=== PATIENT | female | born 1970 | race Caucasian/White ===

== ENCOUNTER 2021-10-15 11:59 | Observation (INO) | payer OTHER, SELFPAY ==
[2021-10-15] VITALS (30 sets, daily range): BP systolic 102–128; BP diastolic 51–80; PULSE 70–87; RESP 14–18; TEMP 36.3–37.1; O2SAT 94–100; BMI 21.2
--- NOTE | ~2021-10-15 | XR_ITS ---
XR chest 1V portable 10/15/2021 15:04 Indication: Weakness and dyspnea Procedure: AP portable chest Comparison: No prior studies for comparison. Findings: There are coarse interstitial infiltrates of both lungs. No pleural effusion or pneumothora x. No acute osseous abnormality. Heart size is normal. No acute osseous abnormality. Impression: 1: Coarse bilateral interstitial infiltrates which may represent mild edema or pneumonia. Reviewed, dictated and finalized at location B. Impression: 1: Coarse bilateral interstitial infiltrates which may represent mild edema or pneumonia.
--- NOTE | ~2021-10-15 | US_ITS ---
US abdomen limited INDICATION: Jaundice. Abdomen pain. PROCEDURE: Realtime right upper abdominal ultrasound. COMPARISON: No prior studies for comparison. FINDINGS: The pancreas is normal without focal mass or pancreatic ductal dilation. There is hepatome vadim with diffuse fatty infiltration. There is normal directional flow in the portal vein. There is gallbladder wall thickening. No stones identified. No pericholecystic fluid. There is a smal l amount of ascites. Spleen is enlarged measuring 13.8 cm. Common bile duct measures 0.35 mm. No so nographic Palafox's sign. IMPRESSION: 1: Hepatosplenomegaly with fatty infiltration of the liver. 2: Small amount of ascites. 3: Gallbladder wall thickening. This could indicate interstitial edema, chronic liver disease or family resource management professor yasmany cholecystitis. Reviewed, dictated and finalized at location B. IMPRESSION: 1: Hepatosplenomegaly with fatty infiltration of the liver. 2: Small amount of ascites. 3: Gallbladder wall thickening. This could indicate interstitial edema, chronic liver disease or chronic cholecystitis.
--- NOTE | ~2021-10-15 | US_ITS ---
EXAMINATION:US venous doppler LE BI INDICATION:Leg edema TECHNIQUE: Multiple grayscale, color flow and Doppler images of the right and left lower extremity de ep venous systems were obtained and reviewed. COMPARISON:No prior studies for FINDINGS: The common femoral, superficial femoral and popliteal veins demonstrate normal respiratory variation, augmentation and compressibility. Color flow is also seen within the posterior tibial, pe roneal, greater saphenous and profunda veins. There is a Gaona's cyst in the left popliteal fossa perry suring 3.9 x 2 x 0.9 cm. IMPRESSION: 1: No lower extremity deep venous thrombosis. Reviewed, dictated and finalized at location A.
[2021-10-15 13:18] LABS: Basophils Percent Auto 0.6 % (0.2-1.2); Eosinophils Absolute Auto 0.1 K/mm3 (0-0.3); Eosinophils Percent Auto 1.1 % (0-4.4); Hematocrit 42.2 % (37.0-47.0); Hemoglobin 14.6 g/dL (12.0-15.0); Immature Granulocyte Absolute 0.04 K/mm3 (0.00-0.031); Immature Granulocyte Percent A 0.6 % (0-0.5); Lymphocytes Absolute Auto 1.06 K/mm3 (0.9-3.2); Mean Corpuscular HGB Conc 34.6 g/dl (32-36); Mean Corpuscular Hemoglobin 36.5 pg (26-34); Mean Corpuscular Volume 105.5 fl (80-100); Mean Platelet Volume 10.1 fl (7.4-10.4); Monocytes Absolute Auto 0.5 K/mm3 (0.1-0.6); Monocytes Percent Auto 7.4 % (2.6-8.5); Neutrophils Absolute Auto 5.3 K/mm3 (1.3-6.7); Neutrophils Percent Auto 75.3 % (45.5-73.1); Platelet Count Result 170 k/mm3 (150-375); Red Cell Distribution Width 15.9 % (11.5-14.5); White Blood Count 7.1 K/mm3 (4.5-10.0)
[2021-10-15 13:22] LABS: Appearance Urine Clear (Clear); Bilirubin Urine 1+ (Negative); Blood Urine Negative (Negative); Color Urine Yellow (Yellow); Glucose Urine UA Negative (Negative); Ketones Urine Negative (Negative); Leukocyte Esterase Ur Negative LEU/UL (Negative); Nitrate Urine Negative (Negative); Protein Urine Negative (Negative)
[2021-10-15 13:24] LABS: Bacteria Urine Trace /hpf; Mucus Urine Rare /lpf; RBC Urine 0-2 /hpf (0-2); Squamous Epithelial Cell Urine Moderate /hpf (Few); WBC Urine 0-3 /hpf
--- NOTE | 2021-10-15 13:28 | ED.GENADULT ---
HPI - General Adult General Chief complaint: Abdominal Pain Stated complaint: constipated for a few weeks, abd distention Time Seen by Provider: 10/15/21 12:51 Source: patient, RN notes reviewed and old records reviewed Mode of arrival: ambulatory Limitations: no limitations History of Present Illness HPI narrative: This is a 51 year old female who presents for evaluation of leg swelling , abdominal distension and pain. Patient has noticed abdominal distension and bilateral ankle swelling for 2 weeks. She states initially her swelling improved but over the past week her leg swelling has worsened. Her right ankle swelling is worse. She denies leg pain, chest pain, or shortness of breath. She also reports being constipated for weeks. She has been taking laxatives without relief. She reports having intermittent RUQ and epigastric pain. She reports having one episode of emesis last week but otherwise denies nausea. She denies history of liver disease. 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 When she is at work she drinks multiple shots. When she is at home she drinks hard seltzers. Related Data Allergies Allergy/AdvReac Type Severity Reaction Status Date / Time No Known Allergies Allergy Verified 10/15/21 12:00 Review of Systems Review of Systems: All systems reviewed & are unremarkable except as noted in HPI and below Constitutional: Constitutional: Denies chills and Denies fatigue Eyes: Eyes: Denies change in vision Cardiovascular: Cardiovascular: Denies chest pain and Denies rapid heart rate Respiratory: Respiratory: Denies chest congestion, Denies cough and Denies dyspnea Gastrointestinal: Gastrointestinal: Reports abdominal pain, Reports bloating, Reports constipation, Reports nausea and Reports vomiting [facility] Past Medical History Medical History (Updated 10/15/21 @ 18:48 by Mariel Devries MD) Patient denies medical problems Surgical History Surgical History (Updated 10/15/21 @ 13:38 by Mariel Devries MD) No pertinent past surgical history Social History Social History (Updated 10/15/21 @ 13:38 by Mariel Devries MD) Alcohol intake: current Exam Const: General: no acute distress, alert and ill appearing Orientation/consciousness: patient oriented x3 Limitations: no limitations HENMT: Face and sinus: normal facial exam Mouth: Yes Normal oral and palatal mucosa present Eyes: Conjunctivae: conjunctival abnormality bilateral conjunctival icterus Pupils: Equal, round and reactive pupils present EOM: EOMs intact bilaterally Resp: Effort & Inspection: normal respiratory effort Auscultation: clear to auscultation bilaterally Cardio: Rate: regular rate Rhythm: regular rhythm Heart sounds: no murmurs GI: Inspection: distended GI Palp: Yes Soft to palpation, Yes Tenderness to palpation present (GI) (RUQ), No Guarding due to palpation present (GI), No Rigid due to palpation and No Hernia present Auscultation: normal bowel sounds Skin: General skin exam: jaundice Neuro: General: patient oriented x3, moves all extremities and CN's II-XI intact bilaterally Extrem: General: edema bilateral (leg) Psych: Mental Status: mental status grossly normal Course Reevaluation(s) Reevaluation #1: Patient presents with abdominal pain. This seems to be due to alcoholic pancreatits with hepatosplenomegaly. She does not have follow up . She is agreeable for admission. I also discussed concern that she may develop alcohol withdrawal and she needs to stop drinking. Isabella maki accepts patient. Date: 10/15/21 Time: 18:00 Vital Signs Vital signs: Vital Signs Temperature 97.8 F 10/15/21 12:19 Pulse Rate 72 10/15/21 12:19 Respiratory Rate 14 10/15/21 12:19 Blood Pressure 128/74 10/15/21 12:19 Pulse Oximetry 100 10/15/21 12:19 Oxygen Delivery Room Air 10/15/21 12:19 Temperature 98.2 F 10/15/21 18:15 Pulse Rate 71 10/15/21 18:15
[2021-10-15 13:37] LABS: Add Urine Microscopic? YES
[2021-10-15 13:56] LABS: Alanine Aminotransferase 46 U/L (6-35); Albumin Level 4.1 g/dL (3.5-5.1); Alkaline Phosphatase 326 U/L (38-126); Anion Gap 9 mmol/L (8-16); Aspartate Amino Transferase 145 U/L (14-36); Bilirubin,Total 8.4 mg/dL (0.2-1.3); Blood Urea Nitrogen 4 mg/dL (7-17); Carbon Dioxide 26 mmol/L (22-30); Chloride 102 mmol/L (98-107); Estimated CRCL calculation 99 ml/min; Estimated Glomerular Filt Rate > 60; Glucose 109 mg/dL (65-110); Lipase 313 U/L (23-300); Sodium 137 mmol/L (137-145)
[2021-10-15 14:07] LABS: Ammonia < 9 umol/L (9-30)
[2021-10-15 15:20] LABS: Magnesium 1.8 mg/dL (1.6-2.3)
[2021-10-15 15:28] LABS: NT Pro B Type Natriuretic Pept 655 pg/mL (5-100)
[2021-10-15 15:56] LABS: INR 1.5; Prothrombin Time 17.5 Seconds (11.1-14.7)
[2021-10-15 15:57] LABS: Partial Thromboplastin Time 40.3 SECONDS (22.3-36.8)
[2021-10-15 16:21] LABS: SARS-CoV-2 RNA PCR Negative
[2021-10-15 16:38] LABS: Hepatitis B Surface Antigen Negative (Negative)
[2021-10-15 16:44] LABS: HAV RESULT Negative (Negative); Hepatitis B Core IgM Result Negative (Negative)
[2021-10-15] MEDS: POTASSIUM CHLORIDE 20 MEQ TABLET 40 MEQ PO (16:54)
[2021-10-15 16:56] LABS: Hepatitis C Virus Antibody Negative (Negative)
[2021-10-15] MEDS: FUROSEMIDE INJ 40 MG/4 ML VIAL IV PUSH (17:39)
--- NOTE | 2021-10-15 17:39 | PC.NURSE ---
lasix manual documented by hospitalist in room with pt on computer. Pt verified by name, , and med verified with EMAR
--- NOTE | 2021-10-15 18:00 | PM.IMHP ---
H&P: HPI History of Present Illness Date/Time: 10/15/21 18:00 Chief Complaint: Multiple complaints. Narrative: This is a pleasant 51-year-old smoker with history of alcohol abuse who presented to the emergency department with multiple complaints including lower extremity edema, abdominal distension concerns for constipation, and yellowing of the eyes. Her abdomen has been distended for the past couple of weeks which she has been attributing to constipation. She has tried Ex-Lax and MiraLax without much benefit, reporting passing only small amounts of otherwise normal stool. She has also developed swelling in her lower legs and friends and family members have remarked that the whites of her eyes look a bit yellow. She was worried that perhaps her symptoms may be related to her alcohol use, and she has not had anything to drink for 3 days. 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 Right upper quadrant ultrasound was ordered for evaluation of jaundice and elevated LFTs and that showed hepatosplenomegaly with fatty infiltration of the liver, small amount of ascites, and gallbladder wall thickening. She has no known history of liver disease and she gives no history to suggest ongoing problems with gallbladder disease. Her appetite has been fine and she denies nausea and vomiting (aside from vomiting after taking MiraLax a couple of weeks ago). She has noticed that her urine is darker than normal but she has not had any UTI symptoms. She has occasional chills but denies fever and sweats. She has not had any signs or symptoms of alcohol withdrawal and specifically denies confusion, hallucinations, anxiety, sweats, and tremors. Review of Systems Review of Systems: Twelve systems were reviewed. No hematemesis, melena, or hematochezia. No cold or flu symptoms. No chest pain or shortness of breath. Denies easy bruising and bleeding. Except as documented, all other systems were reviewed and are negative. [facility] Past Medical History Medical History (Updated 10/15/21 @ 21:26 by Isabella Ackerman PA-C) Alcohol abuse Nicotine use Surgical History Surgical History (Updated 10/15/21 @ 21:15 by Isabella Ackerman PA-C) No history of previous surgery Family History Family History Father Hypertension Aneurysm Mother Hypertension Diabetes mellitus Breast cancer Social History Social History Social History: The patient lives in [place] with her fiance, other 2 children, and pets. 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 She smokes perhaps a half a pack a cigarettes a day when she is working; she does not smoke at home. When working, she drinks perhaps up to a pint of fireball over multiple shots throughout the shift. On the nights that she does not work, she typically consumes for White [employer]aws. No illicit substance use. She designates her fiance, Gagan Guthrie, as her surrogate decision maker and she wishes to be a full code. Meds Home Medications and Allergies Home Medications Medication Instructions Recorded Confirmed Type No Home Medications 10/15/21 10/15/21 History Allergies Allergy/AdvReac Type Severity Reaction Status Date / Time No Known Allergies Allergy Verified 10/15/21 21:17 Vital Signs Vital Signs - 24 hr 10/15/21 12:19 10/15/21 12:50 10/15/21 12:51 Temperature 97.8 F Pulse Rate 72 Respiratory Rate 14 Blood Pressure 128/74 124/70 Pulse Oximetry 100 99 100 Oxygen Delivery Room Air 10/15/21 14:30 10/15/21 12:52 10/15/21 15:13 Temperature 97.3 F L Pulse Rate 70 Respiratory Rate 16 Blood Pressure 122/70 Pulse Oximetry 99 97 98 Oxygen Delivery 10/15/21 15:14 10/15/21 15:15
--- NOTE | 2021-10-15 20:40 | ADMGEN ---
This patient, Mitra Martínez, was admitted to [facility] Room 313-01. Patient/family oriented to hospital policies and general routines including ID bracelet, bed and alarms, visiting hours, pain management, procedures, bathroom and other care routines, personal items, smoking policy, room service/diet, and visiting hours. Information on how to activate the Rapid Response Team has been discussed. Patient/Family are encouraged to report perceived risks to care and to ask questions if they do not understand what they are told or what they should do.
[2021-10-15] MEDS: FOLIC ACID 1 MG/0.2 ML INJ IV PUSH (22:03)
[2021-10-15] MEDS: THIAMINE HCL 200 MG/2 ML VIAL 100 MG IV PUSH (22:03)
[2021-10-15 22:59] LABS: Magnesium 1.6 mg/dL (1.6-2.3); Potassium 3.4 mmol/L (3.4-5.0)
[2021-10-16] VITALS (9 sets, daily range): BP systolic 100–111; BP diastolic 52–60; PULSE 68–85; RESP 16–20; TEMP 36.8–37; O2SAT 95–98
[2021-10-16 00:07] LABS: Folic Acid 10.6 ng/mL (2.76->20); Vitamin B12 > 1000.0 pg/mL (239-931)
--- NOTE | 2021-10-16 06:00 | ECHO_ITS ---
Patient Info Name: Mitra Martínez Age: 51 years : 1970 Gender: Female Ht: 66 in Wt: 131 lbs BSA: 1.66 m2 HR: 74 bpm BP: 100 / 52 mmHg Technical Quality: Good Exam Date: 10/16/2021 7:40 AM [facility] Patient Status: Outpatient Admit Date: 10/15/2021 Staff Ordering Physician: Mariel Devries MD Alcoholism Worker: Jo Hess RDCS Attending Provider: Leida Troy PA-C Referring Physician: Jaycob MARINELLI; Exam Type: CA echo doppler color flow Study Info Indications I50.20 - Unspecified systolic (congestive) heart failure Complete two-dimensional, color flow and Doppler transthoracic echocardiogram is performed. Summary 1. Complete two-dimensional, color flow and Doppler transthoracic echocardiogram is performed. 2. Left ventricular chamber dimension is mildly enlarged. 3. Left ventricular systolic function is normal, estimated at 60-65%. 4. The left ventricular diastolic function is normal. 5. E/e' 9 is minimally elevated. 6. Left atrial chamber dimension is moderately enlarged. 7. There is mild mitral valve regurgitation. 8. There is trace tricuspid valve regurgitation. 9. No pulmonary hypertension, estimated pulmonary arterial systolic pressure is 21 mmHg. 10. There is trace pulmonic regurgitation. 11. There is trivial pericardial effusion. Left Ventricle E/e' 9 is minimally elevated. Left ventricular chamber dimension is mildly enlarged. Left ventricular systolic function is normal, estimated at 60-65%. The left ventricular diastolic function is normal. Right Ventricle Right ventricular systolic function is normal and with normal TAPSE 3.2 cm. Right ventricular chamber dimension is normal. Left Atria Left atrial chamber dimension is moderately enlarged. Right Atria Right atrial chamber dimension is normal. Aortic Valve The aortic valve is trileaflet. There is no aortic valve stenosis. There is no aortic valve regurgitation. Pulmonic Valve There is trace pulmonic regurgitation. Mitral Valve There is no mitral valve stenosis. There is mild mitral valve regurgitation. Tricuspid Valve There is trace tricuspid valve regurgitation. No pulmonary hypertension, estimated pulmonary arterial systolic pressure is 21 mmHg. Pericardium/Pleural There is trivial pericardial effusion. Inferior Vena Cava Normal inferior vena cava with >50% collapse upon inspiration consistent with normal right atrial pressure, 5 mmHg. Aorta The aortic root size at the sinus of Valsalva is normal. Left Ventricular Outflow Tract Name Value Normal LVOT 2D LVOT Diameter 2.0 cm LVOT Doppler LVOT Peak Gradient 8 mmHg LVOT Mean Gradient 4 mmHg LVOT VTI 31 cm LVOT VTI/AV VTI Ratio 0.9 LVOT Stroke Volume 98 ml LVOT CO 16.0 l/min LVOT CI 9.6 l/min/m2 Pulmonic Valve Name
[2021-10-16 06:59] LABS: Basophils Percent Auto 0.6 % (0.2-1.2); Eosinophils Absolute Auto 0.1 K/mm3 (0-0.3); Eosinophils Percent Auto 2.5 % (0-4.4); Hematocrit 33.4 % (37.0-47.0); Hemoglobin 11.7 g/dL (12.0-15.0); Immature Granulocyte Absolute 0.01 K/mm3 (0.00-0.031); Immature Granulocyte Percent A 0.2 % (0-0.5); Lymphocytes Absolute Auto 1.08 K/mm3 (0.9-3.2); Mean Corpuscular Volume 102.8 fl (80-100); Mean Platelet Volume 10.5 fl (7.4-10.4); Monocytes Absolute Auto 0.6 K/mm3 (0.1-0.6); Monocytes Percent Auto 11.5 % (2.6-8.5); Neutrophils Absolute Auto 3.3 K/mm3 (1.3-6.7); Neutrophils Percent Auto 64.2 % (45.5-73.1); Platelet Count Result 141 k/mm3 (150-375); Red Blood Count 3.25 M/mm3 (4.2-5.4); Red Cell Distribution Width 16.3 % (11.5-14.5); White Blood Count 5.2 K/mm3 (4.5-10.0)
[2021-10-16 07:11] LABS: Alanine Aminotransferase 31 U/L (6-35); Albumin Level 2.6 g/dL (3.5-5.1); Alkaline Phosphatase 201 U/L (38-126); Anion Gap 2 mmol/L (8-16); Aspartate Amino Transferase 92 U/L (14-36); Bilirubin,Total 5.9 mg/dL (0.2-1.3); Blood Urea Nitrogen 4 mg/dL (7-17); Carbon Dioxide 29 mmol/L (22-30); Chloride 103 mmol/L (98-107); Estimated CRCL calculation 104 ml/min; Estimated Glomerular Filt Rate > 60; Glucose 92 mg/dL (65-110); Magnesium 1.7 mg/dL (1.6-2.3); Phosphorus 3.1 mg/dL (2.5-4.5); Potassium 3.2 mmol/L (3.4-5.0); Sodium 134 mmol/L (137-145)
[2021-10-16 07:26] LABS: INR 1.7; Prothrombin Time 19.2 Seconds (11.1-14.7)
[2021-10-16 07:27] LABS: Partial Thromboplastin Time 42.5 SECONDS (22.3-36.8)
--- NOTE | 2021-10-16 08:34 | PM.IMPN ---
Progress Note: A&P Assessment and Plan (1) Alcoholic hepatitis: Code(s): K70.10 - Alcoholic hepatitis without ascites Status: Acute Assessment and Plan: Long discussion with the patient and she seems motivated to stop drinking. She has not had alcohol in 3 days in seems to be doing quite well with no signs or symptoms to suggest withdrawal. Initiate CIWA protocol however. She has been started on folic acid and thiamine supplementation. Hepatitis panel negative. Coags show prolonged PT/APTT. Due to her edema, small amount of ascites, and bilateral infiltrates on chest x-ray will avoid over-hydration. Patient with mild lipase elevation at 313, BNP 655, Alk Phos 201. Abdominal Ultrasound showed: 1: Hepatosplenomegaly with fatty infiltration of the liver. 2:? Small amount of ascites. 3: Gallbladder wall thickening. This could indicate interstitial edema, chronic liver disease or chronic cholecystitis. Venous duplex showed no lower extremity DVT. She received 1 dose IV lasix in the ER, and GI started her on spironolactone. Aside from her isolated right lower extremity edema, she does not appear volume overloaded. Echo pending. GI has been consulted did discuss alcohol cessation, course of her treatment and prognosis. They opined her ascites and edema is likely due to some portal hypertension. (2) Hypokalemia: Code(s): E87.6 - Hypokalemia Status: Acute Assessment and Plan: She received 40 mEq KCL in the emergency department. Repeat electrolytes in a.m. Recheck K in the AM. (3) Alcohol abuse: Code(s): F10.10 - Alcohol abuse, uncomplicated Status: Acute Assessment and Plan: The patient understands that she needs to stop drinking immediately and she seems motivated. Plan is as detailed above. CIWA protocol in place and patient started of folic acid and thiamine. Patient is not confused at this time. CIWA score is 0 at this time. Will continue to monitor. Continue with thiamine and folic acid supplementation. (4) Coagulopathy: Code(s): D68.9 - Coagulation defect, unspecified Status: Acute Assessment and Plan: Patient's INR is 1.9. Patient denies episodes of bleeding or easy bruising. She is encouraged to stop drinking. Recheck INR in the AM (5) Nicotine use: Code(s): Z72.0 - Tobacco use Status: Acute Assessment and Plan: She smokes mainly when she is at work and declines the need for nicotine patch. Subjective Date/time seen: 10/16/21 08:34 Interval history: 51-year-old smoker with history of alcohol abuse who presented to the emergency department with multiple complaints including lower extremity edema, abdominal distension concerns for constipation, and yellowing of the eyes.?She said she is feeling well today, but continues to have lower extremity swelling. She denies abdominal pain except with Pushing on my liver . She acknowledged she received AA resources, and is motivated to stop drinking. Review of Systems Review of Systems: All systems reviewed & are unremarkable except as noted in HPI and below Exam Narrative: GENERAL APPEARANCE: Alert and oriented x 3, in no apparent distress. HEENT: PERRL, EOMI. Scleral icterus present. Moist mucous membranes. NECK: Supple. No JVD or obvious carotid bruits. RESPIRATORY: Respirations are nonlabored. Breath sounds are equal and clear bilaterally. No wheezes, Rhonchi, or rales. CARDIOVASCULAR: Regular rate and rhythm with normal S1-S2. No murmurs, gallops, or rubs. GASTROINTESTINAL: Soft, flat, and benign. No mass, tenderness, guarding, or rebound. Bowel sounds are present. SKIN: She is jaundiced. Warm, dry, well perfused. Good turgor. No lesions, nodules, or rashes noted. EXTREMITIES: No cyanosis, clubbing. Right sided lower extremity pitting edema. Radial and pedal pulses intact. NEUROLOGICAL: Alert. Cranial nerves 2-12 are grossly intact.
[2021-10-16] MEDS: POTASSIUM CHLORIDE 20 MEQ PACKET (FOR LIQUID) 40 MEQ PO (09:59)
[2021-10-16] MEDS: FOLIC ACID 1 MG TABLET PO (09:59)
[2021-10-16] MEDS: THIAMINE HCL 100 MG TABLET PO (09:59)
--- NOTE | 2021-10-16 09:59 | WPDGICN ---
Assessment and Plan Assessment and plan (1) Acute alcoholic hepatitis: Code(s): K70.10 - Alcoholic hepatitis without ascites Status: Acute Assessment and Plan: explain to her that she will likely get worse before she has better. She may go through a phase of alcohol withdrawal. Likewise her liver enzymes may increase before they start to decrease which is common with alcoholic hepatitis. I explained to her that her large liver suggests that she is at risk for cirrhosis. 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 (3) Hypokalemia: Code(s): E87.6 - Hypokalemia Status: Acute Assessment and Plan: She has received potassium supplement. I will start her on spironolactone which will help her potassium and also will help with her ascites and edema which is likely due to some portal hypertension (4) Coagulopathy: Code(s): D68.9 - Coagulation defect, unspecified Status: Acute Assessment and Plan: INR 1.9 is worrisome. Hopefully this will improve as she stops drinking. She denies any recent bleeding or frequent bloody noses etcetera Plan observe for possible alcohol withdrawal syndrome. Meat pain thiamine and folic acid supplements. GI Consult Note Consult date/time: 10/16/21 09:59 HPI: Mitra Martínez is a 51 year old female who was admitted with increasing abdominal discomfort, in the her abdomen was becoming distended over the last couple weeks. Also she has noticed some swelling in her lower extremities. She is found have abnormal liver enzymes and his jaundice. She denies any prior history of liver disease, jaundice or hepatitis. 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 She denies any family history of liver disease. She has never used intravenous drugs. She has been nauseated lately but there has been no vomiting. She states that she has never been hospitalized for alcohol-related problem and never had alcohol withdrawal syndrome. CI WA protocol has been initiated. She denies pruritus. She has noticed that her urine has been darker for the last few days. Her bilirubin was 5.9 at admission. Her weight has been stable fluctuating only about 3 or 4 lb. She does not currently have a primary care physician in is on no medications. Review of Systems Review of Systems: All systems reviewed & are unremarkable except as noted in HPI and below PMFSH Past Medical History Medical History (Updated 10/16/21 @ 10:04 by Lele Shahid MD) Alcohol abuse Nicotine use Surgical History Surgical History (Updated 10/15/21 @ 21:15 by Isabella Ackerman PA-C) No history of previous surgery Family History Family History Father Hypertension Aneurysm Mother Hypertension Diabetes mellitus Breast cancer Social History Social History Social History: The patient lives in [place] with her fiance, other 2 children, and pets. 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 She smokes perhaps a half a pack a cigarettes a day when she is working; she does not smoke at home. When working, she drinks perhaps up to a pint of fireball over multiple shots throughout the shift. On the nights that she does not work, she typically consumes for White [employer]. No illicit substance use. She designates her fiance, Gagan Guthrie, as her surrogate decision maker and she wishes to be a full code. Meds Home Medications and Allergies Home Medications Medication Instructions Recorded Confirmed Type No Home Medications 10/15/21
[2021-10-16] MEDS: SPIRONOLACTONE 50 MG TABLET PO (10:36)
[2021-10-16 14:54] LABS: INR 1.6; Prothrombin Time 18.8 Seconds (11.1-14.7)
[2021-10-17] VITALS (7 sets, daily range): BP systolic 100–109; BP diastolic 55–61; PULSE 66–86; RESP 16–20; TEMP 36.8–37.2; O2SAT 94–96
[2021-10-17 06:44] LABS: Hemoglobin 11.2 g/dL (12.0-15.0); Immature Platelet Fraction Pct 4.3 % (0.9-11.2); Mean Corpuscular HGB Conc 33.9 g/dl (32-36); Mean Corpuscular Volume 106.1 fl (80-100); Mean Platelet Volume 10.1 fl (7.4-10.4); Platelet Count Result 137 k/mm3 (150-375); Red Blood Count 3.11 M/mm3 (4.2-5.4); Red Cell Distribution Width 16.3 % (11.5-14.5); White Blood Count 4.9 K/mm3 (4.5-10.0)
[2021-10-17 06:57] LABS: Alanine Aminotransferase 27 U/L (6-35); Albumin Level 2.6 g/dL (3.5-5.1); Alkaline Phosphatase 222 U/L (38-126); Anion Gap 3 mmol/L (8-16); Aspartate Amino Transferase 81 U/L (14-36); Bilirubin,Total 5.2 mg/dL (0.2-1.3); Blood Urea Nitrogen 4 mg/dL (7-17); Calcium 7.9 mg/dL (8.4-10.2); Carbon Dioxide 25 mmol/L (22-30); Chloride 106 mmol/L (98-107); Estimated CRCL calculation 104 ml/min; Estimated Glomerular Filt Rate > 60; Glucose 92 mg/dL (65-110); Potassium 3.8 mmol/L (3.4-5.0); Sodium 134 mmol/L (137-145)
[2021-10-17] MEDS: THIAMINE HCL 100 MG TABLET PO (09:53)
[2021-10-17] MEDS: SPIRONOLACTONE 50 MG TABLET PO (09:53)
[2021-10-17] MEDS: FOLIC ACID 1 MG TABLET PO (09:53)
--- NOTE | 2021-10-17 12:11 | WPDGIPROGNO ---
Progress Note: A&P Assessment and Plan (1) Acute alcoholic hepatitis: Code(s): K70.10 - Alcoholic hepatitis without ascites Status: Acute Assessment and Plan: explain to her that she will likely get worse before she has better. She may go through a phase of alcohol withdrawal. Likewise her liver enzymes may increase before they start to decrease which is common with alcoholic hepatitis. I explained to her that her large liver suggests that she is at risk for cirrhosis. I told her that it is still probably at least partly reversible if she stops drinking 10/17 liver enzymes are about the same. Fortunately they have not increased. Bilirubin is 5.2. ALT actually is normal. I believe that she could be discharged and will follow her up in the office in about 2 weeks. 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 She states that she is definitely going to quit drinking altogether. I told her this is something that she truly needs to adhere to in order to avoid cirrhosis. Again discussed possible complications of cirrhosis (3) Hypokalemia: Code(s): E87.6 - Hypokalemia Status: Acute Assessment and Plan: She has received potassium supplement. I will start her on spironolactone which will help her potassium and also will help with her ascites and edema which is likely due to some portal hypertension 10/17 potassium is normal today. I would have her go home on Aldactone 25 mg per day (4) Coagulopathy: Code(s): D68.9 - Coagulation defect, unspecified Status: Acute Assessment and Plan: INR 1.9 is worrisome. Hopefully this will improve as she stops drinking. She denies any recent bleeding or frequent bloody noses etcetera 10/17 INR is 1.6 today. At least that is in improving. Plan observe for possible alcohol withdrawal syndrome. Maintain thiamine and folic acid supplements. Additional Plan I need her to see me in the office in 2 or 3 weeks Subjective Date/time seen: Mitra Martínez is a 51 year old female? who was admitted with increasing abdominal discomfort, in the her abdomen was becoming distended over the last couple weeks.? Also she has noticed some swelling in her lower extremities.? She is found have abnormal liver enzymes and his jaundice.? She denies any prior history of liver disease, jaundice or hepatitis.? 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 She denies any family history of liver disease.? She has never used intravenous drugs.? She has been nauseated lately but there has been no vomiting.? She states that she has never been hospitalized for alcohol-related problem and never had alcohol withdrawal syndrome.? CI WA protocol has been initiated.? She denies pruritus.? She has noticed that her urine has been darker for the last few days.? Her bilirubin was 5.9 at admission.? Her weight has been stable fluctuating only about 3 or 4 lb.? She does not currently have a primary care physician in is on no medications. 10/17/21 12:11 she states that she is feeling good today. She feels that the swelling has gone down in both her legs and her abdomen. She is tolerating her diet Exam Const: General: alert Orientation/consciousness: patient oriented x3 Eyes: Sclera: scleral abnormality ( Icteric) Resp: Auscultation: clear to auscultation bilaterally Cardio: Rhythm: regular rhythm GI: Auscultation: normal bowel sounds Skin: General skin exam: jaundice Neuro: General: patient oriented x3 Motor exam (neuro): No Asterixis during motor activity present Objective Data Vital Signs Vital Signs: Vital Signs - 24 hr 10/16/21 14:00 10/16/21 20:00 10/16/21 20:00 Temperature 36
--- NOTE | 2021-10-17 14:15 | PM.DS ---
DS: Admitting Diagnosis Discharge Date 10/17/21 1600 Admitting Diagnosis Jaundice DS: Discharge Diagnosis Discharge Diagnosis (1) Alcoholic hepatitis: Code(s): K70.10 - Alcoholic hepatitis without ascites Status: Acute Assessment and Plan: Long discussion with the patient and she seems motivated to stop drinking. She has not had alcohol in 3 days in seems to be doing quite well with no signs or symptoms to suggest withdrawal. Initiate CIWA protocol however. She has been started on folic acid and thiamine supplementation. Hepatitis panel negative. Coags show prolonged PT/APTT. Due to her edema, small amount of ascites, and bilateral infiltrates on chest x-ray will avoid over-hydration. Patient with mild lipase elevation at 313, BNP 655, Alk Phos 201. Abdominal Ultrasound showed: 1: Hepatosplenomegaly with fatty infiltration of the liver. 2:? Small amount of ascites. 3: Gallbladder wall thickening. This could indicate interstitial edema, chronic liver disease or chronic cholecystitis. Venous duplex showed no lower extremity DVT. She received 1 dose IV lasix in the ER, and GI started her on spironolactone. Aside from her isolated right lower extremity edema, she does not appear volume overloaded. Echo pending. GI has been consulted did discuss alcohol cessation, course of her treatment and prognosis. They opined her ascites and edema is likely due to some portal hypertension. 10/17 Her transaminitis has improved, as has her bilirubin. Her PT/aPTT/ INR remain prolonged. Lower extremity edema has also resolved. We will order repeat labs for all these values upon discharge. GI will discharge her with aldactone for her edema and hypokalemia and will see her in the office in 2-3 weeks. Discussed the importance of alcohol cessation. (2) Hypokalemia: Code(s): E87.6 - Hypokalemia Status: Acute Assessment and Plan: She received 40 mEq KCL in the emergency department. Repeat electrolytes in a.m. Patient's K 3.8 after potassium supplementation. (3) Alcohol abuse: Code(s): F10.10 - Alcohol abuse, uncomplicated Status: Acute Assessment and Plan: The patient understands that she needs to stop drinking immediately and she seems motivated. Plan is as detailed above. CIWA protocol in place and patient started of folic acid and thiamine. Patient is not confused at this time. Patient showed no acute signs of withdrawal during her stay. Continue with thiamine and folic acid supplementation after discharge. Patient received information regarding support groups. She is motivated. (4) Coagulopathy: Code(s): D68.9 - Coagulation defect, unspecified Status: Acute Assessment and Plan: Patient's INR is 1.9. Patient denies episodes of bleeding or easy bruising. She is encouraged to stop drinking. Plan as above (5) Nicotine use: Code(s): Z72.0 - Tobacco use Status: Acute Assessment and Plan: She smokes mainly when she is at work and declines the need for nicotine patch. DS: Summary Hospital Course Reason for hospitalization: Alcoholic Hepatitis Hospital Course: See above for full hospital course Status at Discharge Cognitive/behavioral status at discharge: Progressing to baseline Time Spent with Patient Time attestation: Total time spent providing and/or coordinating discharge services: 35 minutes Exam Narrative: GENERAL APPEARANCE: Alert and oriented x 3, in no apparent distress. HEENT: PERRL, EOMI. Scleral icterus present. Moist mucous membranes. NECK: Supple. No JVD or obvious carotid bruits. RESPIRATORY: Respirations are nonlabored. Breath sounds are equal and clear bilaterally. No wheezes, Rhonchi, or rales. CARDIOVASCULAR: Regular rate and rhythm with normal S1-S2. No murmurs, gallops, or rubs. GASTROINTESTINAL: Soft, flat, and benign. No mass, tenderness, guarding, or rebound. Bowel sounds are present
== END 2021-10-17 16:14 | disposition home or self-care (01) ==
LOC: ANHED 13:36 → ANH3MEDSUR 18:30
PROVIDERS: Emergency Medicine; Physician Assistant; Admitting Provider Family Medicine; Emergency Provider General Practice; Visit Provider Student in an Organized Health Care Education/Training Program
DX: K70.10 Alcoholic hepatitis without ascites (principal); F10.10 Alcohol abuse, uncomplicated; E87.6 Hypokalemia; M79.89 Other specified soft tissue disorders; D68.9 Coagulation defect, unspecified; Z20.822 Contact with and (suspected) exposure to COVID-19; Z72.0 Tobacco use
CPT/HCPCS: 36415; 71045; 76705; 80053; 80074; 81001; 81025; 82140; 82607; 82746; 83690; 83735; 83880; 84100; 84132; 85025; 85027; 85055; 85610; 85730; 93306; 93970; 96374; 96375; 99285; A9270; C9803; G0378; G0379; J1940; J3411; U0003; U0005

== ENCOUNTER 2021-11-15 12:20 | Outpatient (CLI) | payer OTHER, SELFPAY ==
[2021-11-15 12:50] LABS: Alanine Aminotransferase 32 U/L (6-35); Albumin Level 3.9 g/dL (3.5-5.1); Alkaline Phosphatase 194 U/L (38-126); Anion Gap 6 mmol/L (8-16); Aspartate Amino Transferase 74 U/L (14-36); Bilirubin,Total 2.2 mg/dL (0.2-1.3); Blood Urea Nitrogen 8 mg/dL (7-17); Calcium 9.2 mg/dL (8.4-10.2); Carbon Dioxide 22 mmol/L (22-30); Chloride 106 mmol/L (98-107); Estimated Glomerular Filt Rate > 60; Glucose 103 mg/dL (65-110); Potassium 3.7 mmol/L (3.4-5.0); Sodium 134 mmol/L (137-145)
[2021-11-15 12:52] LABS: INR 1.4
== END 2021-11-15 12:21 | disposition home or self-care (01) ==
LOC: ANHLAB 12:22
PROVIDERS: Visit Provider Student in an Organized Health Care Education/Training Program
DX: D68.9 Coagulation defect, unspecified (principal); K70.10 Alcoholic hepatitis without ascites
CPT/HCPCS: 36415; 80053; 85610

== ENCOUNTER 2021-11-26 10:03 | Outpatient (CLI) | payer OTHER, SELFPAY ==
[2021-12-02 15:43] LABS: ALT 14 U/L (6-29); Alpha-2-Macroglobulin 213 mg/dL (106-279); Apolipoprotein A1 127 mg/dL (101-198); Fibrosis Stage F4; GGT 158 U/L (3-70); Haptoglobin 28 mg/dL (43-212); Necroinflammat Act Grade A0; Total Bilirubin 1.7 mg/dL (0.2-1.2)
== END 2021-11-26 10:04 | disposition home or self-care (01) ==
LOC: ANHLAB 10:06
PROVIDERS: Visit Provider Internal Medicine Gastroenterology
DX: K70.10 Alcoholic hepatitis without ascites (principal)
CPT/HCPCS: 36415; 81596

== ENCOUNTER 2022-01-25 10:05 | Outpatient (CLI) | payer OTHER, SELFPAY ==
--- NOTE | ~2022-01-25 | US_ITS ---
US abdomen complete EXAMINATION: US Abdomen Complete INDICATION: Hepatomegaly PROCEDURE: Realtime High Resolution abdomen ultrasound. COMPARISON: No prior studies for comparison FINDINGS: Gallbladder within normal limits. No gallstones, pericholecystic fluid, gallbladder wall t hickening or biliary dilatation. Common bile duct measures 3 mm. Liver echotexture within normal limits without focal mass. The liver is increased in size measuring 1 7.9 cm. There is ascites in the right upper abdomen. Pancreas within normal limits. Pancreatic tail is obscured by bowel gas. Spleen is enlarged measuring 13.3 cm. Renal echotexture is within normal l imits bilaterally without hydronephrosis, contour deforming mass or renal stone. Right kidney measure s 10.2 cm. Left kidney measures 10.8 cm. Visualized aspects of the aorta and IVC are within normal limits. Portal vein is patent. No sonograph ic Palafox's sign indicated by the technologist. IMPRESSION: 1: Hepatosplenomegaly. Reviewed, dictated and finalized at location A. IMPRESSION: 1: Hepatosplenomegaly.
[2022-01-25 12:34] LABS: Alanine Aminotransferase 21 U/L (6-35); Albumin Level 4.1 g/dL (3.5-5.1); Alkaline Phosphatase 135 U/L (38-126); Aspartate Amino Transferase 48 U/L (14-36); Bilirubin,Total 2.1 mg/dL (0.2-1.3)
== END 2022-01-25 10:06 | disposition home or self-care (01) ==
LOC: ANHIMG 10:07
PROVIDERS: Visit Provider Internal Medicine Gastroenterology
DX: R16.0 Hepatomegaly, not elsewhere classified (principal)
CPT/HCPCS: 36415; 76700; 80076

== ENCOUNTER 2022-03-24 12:31 | Emergency (ER) | payer OTHER, SELFPAY ==
--- NOTE | ~2022-03-24 | CT_ITS ---
EXAMINATION: CT abdomen pelvis w con DATE: 03/24/2022 17:02 INDICATION: Abdominal pain and swelling for 2 weeks. History of liver disease. TECHNIQUE: Computed tomography (CT) of the abdomen and pelvis was performed with 100 CC Omnipaque 350 intravenous contrast. Automated exposure control and iterative reconstruction technique were employe d. Exam dose: 267.13 mGy-cm total exam DLP. COMPARISON: 01/25/2022 complete abdominal ultrasound examination FINDINGS: Mild discoid atelectasis or scarring at the base of the left lower lobe. No consolidation a t the lung bases. Normal heart size. No pericardial or pleural effusion. There is prominent amount of abdominal and pelvic ascites. The spleen measures up to 12.5 cm vertical dimension. The gallbladder is present. No bile duct or pancreatic duct dilatation. No pancreatic calcification. No hepatic or splenic, pancreatic, and adrenal or renal space-occupying mass lesion is detected. No u rinary tract calculus or hydroureteronephrosis. The uterus, adnexa and urinary bladder are unremarkab le. Diverticulosis of the colon; no CT evidence of diverticulitis is noted. No bowel obstruction or intra peritoneal free air. Normal caliber of the abdominal aorta. No intraperitoneal or retroperitoneal or pelvic mass lesion or adenopathy is detected. Included skeletal structures are unremarkable. IMPRESSION: Prominent ascites, borderline splenomegaly Diverticulosis of the colon Reviewed, dictated and finalized at [facility]. Reviewed, dictated and finalized at location B. ER ENGINEER
[2022-03-24 13:10] VITALS: BP 117/64; PULSE 77; RESP 18; TEMP 36.9; O2SAT 99
[2022-03-24 13:14] LABS: Basophils Percent Auto 0.8 % (0.2-1.2); Eosinophils Absolute Auto 0.2 K/mm3 (0-0.3); Eosinophils Percent Auto 5.9 % (0-4.4); Hematocrit 34.7 % (37.0-47.0); Hemoglobin 11.6 g/dL (12.0-15.0); Lymphocytes Absolute Auto 0.86 K/mm3 (0.9-3.2); Lymphocytes Percent Auto 22.2 % (18.3-44.2); Mean Corpuscular HGB Conc 33.4 g/dl (32-36); Mean Corpuscular Hemoglobin 32.3 pg (26-34); Mean Corpuscular Volume 96.7 fl (80-100); Mean Platelet Volume 9.2 fl (7.4-10.4); Monocytes Absolute Auto 0.4 K/mm3 (0.1-0.6); Monocytes Percent Auto 9.6 % (2.6-8.5); Neutrophils Absolute Auto 2.4 K/mm3 (1.3-6.7); Neutrophils Percent Auto 61.5 % (45.5-73.1); Platelet Count Result 109 k/mm3 (150-375); Red Blood Count 3.59 M/mm3 (4.2-5.4); White Blood Count 3.9 K/mm3 (4.5-10.0)
[2022-03-24 13:23] LABS: Anion Gap 12 mmol/L (8-16); Blood Urea Nitrogen 8 mg/dL (7-17); Calcium 9.7 mg/dL (8.4-10.2); Carbon Dioxide 22 mmol/L (22-30); Chloride 103 mmol/L (98-107); Estimated CRCL calculation 82 ml/min; Estimated Glomerular Filt Rate > 60; Glucose 103 mg/dL (65-110); Sodium 137 mmol/L (137-145)
[2022-03-24 13:24] LABS: Alanine Aminotransferase 16 U/L (6-35); Alkaline Phosphatase 135 U/L (38-126); Aspartate Amino Transferase 37 U/L (14-36); Bilirubin,Total 1.7 mg/dL (0.2-1.3); Lipase 168 U/L (23-300)
[2022-03-24 14:10] LABS: Appearance Urine Clear (Clear); Bilirubin Urine Negative (Negative); Blood Urine Negative (Negative); Color Urine Yellow (Yellow); Glucose Urine UA Negative (Negative); Ketones Urine Negative (Negative); Leukocyte Esterase Ur Trace LEU/UL (Negative); Nitrate Urine Negative (Negative); Protein Urine Negative (Negative); Specific Grav Ur <= 1.005 (1.001-1.035); Urobilinogen Urine 0.2 mg/dL (<2.0)
[2022-03-24 14:19] LABS: Bacteria Urine Trace /hpf; Mucus Urine Rare /lpf; RBC Urine 0-2 /hpf (0-2); Squamous Epithelial Cell Urine Moderate /hpf (Few); WBC Urine 0-3 /hpf
[2022-03-24 14:21] LABS: Add Urine Microscopic? YES
--- NOTE | 2022-03-24 16:12 | ED.ABDPAIN ---
HPI - Abdominal Pain General Chief Complaint: Abdominal Pain Stated Complaint: SWOLLEN ABD, HX LIVER DISEASE Time Seen by Provider: 03/24/22 16:11 Source: patient and family History of Present Illness HPI narrative: 51 years old white female with a history of alcoholic hepatitis into the emergency room by private car with her significant other complaining of diffuse abdominal discomfort and the swelling for the last 2 weeks[address] Dr[address] Cole 1-1/2-month ago and had a prescription of diuretics for leg edema at that time. Patient scheduled to see him at the end of this month and she cannot wait. She denies any fever, chills, nausea, vomiting, diarrhea, constipation. Related Data Allergies Allergy/AdvReac Type Severity Reaction Status Date / Time No Known Allergies Allergy Verified 02/01/22 10:36 Review of Systems Review of Systems: All systems reviewed & are unremarkable except as noted in HPI and below PMFSH Past Medical History Medical History Alcohol abuse Nicotine use Surgical History Surgical History No history of previous surgery Family History Family History Father Hypertension Aneurysm Mother Hypertension Diabetes mellitus Breast cancer Social History Social History Social History: The patient lives in [place] with her fiance, other 2 children, and pets. 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 She smokes perhaps a half a pack a cigarettes a day when she is working; she does not smoke at home. When working she drinks perhaps up to a pint of fireball. On the nights that she does not work, she typically consumes for [employer]. No illicit substance use. She designates her fiance, Gagan Guthrie, as her surrogate decision maker and she wishes to be a full code. Smoking status: Light tobacco smoker Alcohol intake: former Substance use: never Exam Narrative: General appearance: Well-developed, well-nourished Skin: Normal color Head: Normocephalic, nontraumatic Eyes: Clear conjunctiva ENT: Oropharynx normal, ears normal, nose normal Neck: Supple, nontender Chest and respiratory: Airway patent, no respiratory distress, no accessory muscle use Heart: Regular rate/rhythm Abdomen: Soft, nontender, no organomegaly, quiet bowel sounds, mild to moderate ascites, soft, no localized tenderness no guarding Vascular: Normal peripheral pulses, normal capillary refill. Musculoskeletal: Normal range of motion, nontender back Neurologic: Alert and oriented ?3, AIRSET MOLDER is normal as tested, no gross motor deficit Course Course Emergency Course: Work-up today showed that the patient have a prominent enthesitis secondary to portal hypertension/liver cirrhosis. Abdominal centesis/interventional radiologist are not available today, 6 PM, Patient was advised to stay overnight for abdominal centesis in the morning, she declined and would like to call Dr. Shahid tomorrow for outpatient procedure.. Patient looks comfortable, no shortness of breath, the physical examination showed mild to moderate ascites, soft abdomen. Vital Signs Vital signs: Vital Signs Temperature 36.9 C 03/24/22 13:10 Pulse Rate 77 03/24/22 13:10 Respiratory Rate 18 03/24/22 13:10 Blood Pressure 117/64 03/24/22 13:10 Pulse Oximetry 99 03/24/22 13:10 Oxygen Delivery Room Air 03/24/22 13:10 Temperature 36.9 C 03/24/22 13:10 Pulse Rate 77 03/24/22 13:10 Respiratory Rate 18 03/24/22 13:10 Blood Pressure 1
[2022-03-24] MEDS: SODIUM CHLORIDE 0.9% IV 1,000 ML 999 ML IV CONT (16:29)
[2022-03-24] MEDS: ONDANSETRON INJ 4 MG/2 ML VIAL IV PUSH (16:30)
[2022-03-24] MEDS: MORPHINE SULFATE (*CRX) 4 MG/ML INJ IV PUSH (16:30)
[2022-03-24 16:49] LABS: INR 1.5; Prothrombin Time 17.8 Seconds (11.1-14.7)
[2022-03-24 16:51] LABS: Ethanol < 10 mg/dL (<10)
[2022-03-24 16:52] LABS: Magnesium 1.9 mg/dL (1.6-2.3)
== END 2022-03-24 18:30 | disposition home or self-care (01) ==
PROVIDERS: Emergency Provider Emergency Medicine
DX: K70.11 Alcoholic hepatitis with ascites (principal); F10.10 Alcohol abuse, uncomplicated; F17.210 Nicotine dependence, cigarettes, uncomplicated; K57.90 Diverticulosis of intestine, part unspecified, without perforation or abscess without bleeding; Y90.0 Blood alcohol level of less than 20 mg/100 ml
CPT/HCPCS: 36415; 74177; 80053; 80307; 81001; 83690; 83735; 85025; 85610; 96361; 96374; 96375; 99284; J2270; J2405; J7030; Q9967

== ENCOUNTER 2022-05-10 10:12 | Outpatient (CLI) | payer OTHER, SELFPAY ==
[2022-05-10 11:29] LABS: Alanine Aminotransferase 20 U/L (6-35); Albumin Level 4.4 g/dL (3.5-5.1); Alkaline Phosphatase 131 U/L (38-126); Anion Gap 5 mmol/L (8-16); Aspartate Amino Transferase 34 U/L (14-36); Blood Urea Nitrogen 10 mg/dL (7-17); Calcium 9.5 mg/dL (8.4-10.2); Carbon Dioxide 25 mmol/L (22-30); Chloride 104 mmol/L (98-107); Estimated Glomerular Filt Rate > 60; Glucose 94 mg/dL (65-110); Sodium 134 mmol/L (137-145)
== END 2022-05-10 10:13 | disposition home or self-care (01) ==
PROVIDERS: Visit Provider Internal Medicine Gastroenterology
DX: K74.60 Unspecified cirrhosis of liver (principal)
CPT/HCPCS: 36415; 80053

== ENCOUNTER 2022-06-02 09:08 | Outpatient (CLI) | payer OTHER, SELFPAY ==
--- NOTE | ~2022-06-02 | US_ITS ---
EXAMINATION: US abdomen complete DATE: 06/02/2022 09:56 INDICATION: Hepatomegaly TECHNIQUE: Multiple grayscale and Doppler ultrasound images of the abdomen were obtained. COMPARISON: 01/25/2022 FINDINGS: Pancreas is normal with normal caliber main pancreatic duct which measures <2 mm at the body of the p ancreas. Abdominal aorta is normal in caliber measuring 2.3 cm proximally tapering to 2.0 cm the mid aorta and 1.3 cm in the distal aorta. The visualized proximal to mid inferior vena cava is normal. Li pierce has normal echogenicity with slightly coarsened echotexture and fine surface nodularity consisten t with cirrhosis. No liver lesion identified. No intrahepatic biliary duct dilation suspected. Portal venous flow was seen in the hepatopetal, normal direction and has normal Doppler waveform. The incom pletely distended gallbladder is normal in appearance. There is no cholelithiasis. The common bile d uct measures 3 mm, which is normal. Sonographic Palafox sign was reported as negative by the sonograph er. There is normal renal contour and echogenicity bilaterally. The right kidney measures 9.4 x 3.9 x 5.1 cm and the left 10.6 x 5.0 x 4.7 cm. There are no focal renal lesions identified. There is no hydronephrosis. Mild splenomegaly measuring 14.4 x 14.0 x 5.7 cm. Small amount of ascites in the righ t and left upper quadrants. IMPRESSION: 1. Cirrhosis with small amount of ascites and mild splenomegaly suggesting secondary portal venous hy pertension. Reviewed, dictated and finalized at location L. RINARY VIRUS SERUM INSPECTOR IMPRESSION: 1. Cirrhosis with small amount of ascites and mild splenomegaly suggesting seco ndary portal venous hypertension.
== END 2022-06-02 09:09 | disposition home or self-care (01) ==
PROVIDERS: Visit Provider Internal Medicine Gastroenterology
DX: K74.60 Unspecified cirrhosis of liver (principal); R16.1 Splenomegaly, not elsewhere classified; R18.8 Other ascites
CPT/HCPCS: 76700